=== PATIENT | male | born 1985 | race Two or more races ===

== ENCOUNTER 2016-07-17 08:01 | Emergency (ER) | payer SELFPAY ==
[~2016-07-17] VITALS: Ht 170.2 cm; Wt 83.9 kg
[~2016-07-17 08:01] MED LIST: HYDR-971 PO
[2016-07-17 08:41] VITALS: BP 164/108
[2016-07-17] MEDS ORDERED: NAPROXEN 500 MG TABLET PO STA (08:42)
--- NOTE | 2016-07-17 08:44 | RAD ---
Indication fall, pain. AP oblique and lateral views of the right ankle were obtained. No bony abnormality is seen
[2016-07-17] MEDS ORDERED: HYDROCODONE/APAP 5/325MG TABLET. PO ONE (08:45)
[2016-07-17] MEDS ORDERED: TRAM-29 PO (08:50)
--- NOTE | 2016-07-17 08:50 | PHYS DOC ---
Past Medical History Past Medical History: No Pertinent History Past Surgical History: Other Additional Past Surgical Histo: ACL repair Alcohol Use: Rarely Drug Use: None Adult General Chief Complaint Chief Complaint: ANKLE PROBLEM HPI HPI Patient is a 31 year old male with no significant medical history who presents today with moderate right lateral ankle pain that began at 6:30 this morning. Patient states he was walking down some steps in darkness when he missed one step and rolled his ankle. Patient states he heard a snap sound from the ankle. patient denies any loss of consciousness. Review of Systems Review of Systems Constitutional: Denies fever or chills [] Eyes: Denies change in visual acuity, redness, or eye pain [] HENT: Denies nasal congestion or sore throat [] : Denies dysuria or hematuria [] Musculoskeletal: Right ankle pain Integument: Denies rash or skin lesions [] Neurologic: Denies headache, focal weakness or sensory changes [] Endocrine: Denies polyuria or polydipsia [] Allergies Allergies Allergies Coded Allergies Type Severity Reaction Last Updated Verified No Known Drug Allergies 02/23/14 No Physical Exam Physical Exam Constitutional: Well developed, well nourished, no acute distress, non-toxic appearance. [] HENT: Normocephalic, atraumatic, bilateral external ears normal, oropharynx moist, no oral exudates, nose normal. [] Skin: Warm, dry, no erythema, no rash. [] Back: No tenderness, no CVA tenderness. [] Extremities: Right lateral ankle with moderate soft tissue swelling. Tenderness on palpation of the right lateral ankle. Limited range of motion to the ankle due to pain. Patient able to flex and extend the right foot. +2 right pedal pulse. Cap refill less than 2 seconds the right lower extremity. Sensation intact to the right lower extremity. Neurologic: Alert and oriented X 3, normal motor function, normal sensory function, no focal deficits noted. [] Psychologic: Affect normal, judgement normal, mood normal. [] EKG EKG [] Radiology/Procedures Radiology/Procedures []PROCEDURE: ANKLE RIGHT 3V Indication fall, pain. AP oblique and lateral views of the right ankle were obtained. No bony abnormality is seen DICTATED and SIGNED BY: BEN NAIR MD DATE: 07/17/16 0994 CC: GURPREET REVELES APRN; NO PCP; NON,STAFF ~ Course & Med Decision Making Course & Med Decision Making Pertinent Labs and Imaging studies reviewed. (See chart for details) Patient is in the ED with complaints of right ankle pain after rolling it today. Right ankle x-rays interpreted by radiologist are negative for any acute findings. Patient has right ankle sprain. Aircast applied to the right ankle by the ED RN, neurovascular exam done by me is normal, cap refill less than 2 seconds. Ice elevation encouraged. OTC pain relievers recommended. Follow-up with orthopedic doctor in one week if pain continues. Dragon Disclaimer Dragon Disclaimer This electronic medical record was generated, in whole or in part, using a voice recognition dictation system. Departure Departure Impression: Primary Impression: Right ankle sprain Disposition: HOME, SELF-CARE Condition: STABLE Referrals: NO PCP (PCP) DANILO STEELE MD Follow-up in one week Patient Instructions: Ankle Sprain Additional Instructions: Your x-ray of the right ankle is normal. You probably have right ankle sprain. Wear the air cast as ordered. Ice and elevate the extremity. Follow-up with your orthopedic doctor, or the provided orthopedic doctor in one week if pain continues. Scripts Tramadol Hcl (Ultram)50 Mg Tablet1 Tab PO Q6HRS #30 TAB Prov:GURPREET REVELES APRN 07/17/16 Problem Qualifiers Primary Impression: Right ankle sprain Encounter type: initial encounter Involved ligament of ankle: unspecified ligament Qualified Code: S93.401A - Sprain of unspecified ligament of right ankle, initial encounter GURPREET REVELES APRN July 17, 2016 08:50
== END 2016-07-17 09:08 | disposition home or self-care (01) ==
LOC: ER 08:01
DX: S93.401A Sprain of unspecified ligament of right ankle, initial encounter (principal); X58.XXXA Exposure to other specified factors, initial encounter; Y93.89 Activity, other specified; Y92.89 Other specified places as the place of occurrence of the external cause; Y99.8 Other external cause status
CPT/HCPCS: 73610; 99284

== ENCOUNTER 2017-08-12 12:48 | Emergency (ER) | payer SELFPAY ==
[2017-08-12] MEDS ORDERED: HYDROcodone/APAP 5/325MG 1 TAB TABLET PO (13:45)
== END 2017-08-12 13:31 | disposition home or self-care (01) ==
LOC: ER 12:48
DX: S90.31XA Contusion of right foot, initial encounter (principal); X58.XXXA Exposure to other specified factors, initial encounter; Y93.89 Activity, other specified; Y99.8 Other external cause status; Y92.89 Other specified places as the place of occurrence of the external cause
CPT/HCPCS: 73630; 99284

== ENCOUNTER 2018-08-17 13:56 | Emergency (ER) | payer SELFPAY ==
[~2018-08-17] VITALS: Ht 175.3 cm; Wt 83.9 kg
[~2018-08-17 13:56] MED LIST changes: +HYDR-3164 PO; -HYDR-971 PO; +TRAM-48 PO
[2018-08-17 14:03] VITALS: BP 147/91
[2018-08-17] MEDS ORDERED: HYDROcodone/APAP 5/325MG 1 TAB TABLET PO ONE (14:15)
--- NOTE | 2018-08-17 14:19 | PHYS DOC ---
Past Medical History Past Medical History: No Pertinent History Past Surgical History: Other Additional Past Surgical Histo: ACL repair,R)ankle fx and repair at age 13. Alcohol Use: Rarely Drug Use: None Adult General Chief Complaint Chief Complaint: HAND PROBLEM HPI HPI Patient is a 33 year old right-handed male who presents with complaining of right hand injury. Patient states he was moving a washer and dryer with his father and the washer was dropped on his right hand about an over prior to arrival to ER. Patient rated his pain 9/10 and complaining of erythema and painful range of motion of his right hand. Patient denies focal neurodeficit and other injuries. Review of Systems Review of Systems Constitutional: Denies fever or chills [] Eyes: Denies change in visual acuity, redness, or eye pain [] HENT: Denies nasal congestion or sore throat [] Respiratory: Denies cough or shortness of breath [] Cardiovascular: No additional information not addressed in HPI [] GI: Denies abdominal pain, nausea, vomiting, bloody stools or diarrhea [] : Denies dysuria or hematuria [] Musculoskeletal: Denies back pain, reports joint pain [] Integument: Denies rash or skin lesions [] Neurologic: Denies headache, focal weakness or sensory changes [] Endocrine: Denies polyuria or polydipsia [] All other systems were reviewed and found to be within normal limits, except as documented in this note. Current Medications Current Medications Current Medications Medications (Trade) Dose Ordered Sig/Chu Start Time Stop Time Status Last Admin Dose Admin Acetaminophen/ Hydrocodone Bitart (Lortab 5/325) 1 tab 1X ONCE 08/17/18 14:15 08/17/18 14:16 DC 08/17/18 14:32 1 TAB Allergies Allergies Allergies Coded Allergies Type Severity Reaction Last Updated Verified No Known Drug Allergies 02/23/14 No Physical Exam Physical Exam Constitutional: Well developed, well nourished, mild distress, non-toxic appearance. [] HENT: Normocephalic, atraumatic Eyes: PERRLA, EOMI, conjunctiva normal, no discharge. [] Neck: Normal range of motion, no tenderness, supple, no stridor. [] Cardiovascular:Heart rate regular rhythm, no murmur [] Lungs & Thorax: Bilateral breath sounds clear to auscultation [] Extremities: Right hand with moderate edema and contusion of dorsal of the second and third and fourth metacarpal area with tenderness, painful range of motion. Neurologic: Alert and oriented X 3, normal motor function, normal sensory function, no focal deficits noted. [] Psychologic: Affect normal, judgement normal, mood normal. [] Current Patient Data Vital Signs Vital Signs Date Time Temp Pulse Resp B/P (MAP) Pulse Ox O2 Delivery O2 Flow Rate FiO2 08/17/18 14:03 97.7 107 18 147/91 (109) 97 Room Air 97.7 EKG EKG [] Radiology/Procedures Radiology/Procedures [facility] [address] [place], [place] [id number] IMAGING REPORT Signed PATIENT: TODD LY ACCOUNT: [id number] : 1985 LOCATION: ER AGE: 33 SEX: M EXAM STATUS: REG ER ORD. PHYSICIAN: CHARY BARRETT MD REASON: injury, SMASHED HAND, DORSAL SIDE SWOLLEN/RED OVER 3RD, 4TH,5TH META CARPAL PROCEDURE: HAND RIGHT 3V Examination: 3 views of the right hand HISTORY: History of injury smashed hand COMPARISON: 02/23/2014 FINDINGS: The alignment of the metacarpophalangeal, interphalangeal joint grossly appears unremarkable. There is not a fracture or dislocation identified. Soft tissue swelling identified in the dorsum of the hand. IMPRESSION: 1. No acute osseous findings. 2. Soft tissue swelling identified in the dorsum of the hand, probably secondary to injury. Electronically signed by: Myron Tamez MD (08/17/2018 2:39 PM) [facility] DICTATED and SIGNED BY: MYRON TAMEZ MD DATE: 08/17/18 4473 Course & Med Decision Making Course & Med Decision Making Pertinent Imaging studies reviewed. (See chart for details) Evaluation of patient in ER shows 33-year-old male patient with injury to right hand. Patient had repeat contusion of right hand. X-ray did not show fracture. Plan discharge patient home to diagnose of contusion. Dragon Disclaimer Dragon Disclaimer This electronic medical record was generated, in whole or in part, using a voice recognition dictation system. Departure Departure Impression: Primary Impression: Contusion of right hand Disposition: HOME, SELF-CARE (at 1450) Condition: IMPROVED Referrals: NO PCP (PCP) Patient Instructions: Hand Contusion Additional Instructions: Apply ice on the affected area Follow-up with your primary care physician in 3-5 days Return to ER if not getting better Scripts Hydrocodone/Apap 5-325 (NORCO 5-325 TABLET) 1 Each Tablet 1 TAB PO PRN Q6HRS PRN for PAIN, #10 TAB 0 Refills Prov: CHARY BARRETT MD 08/17/18 Ibuprofen (IBUPROFEN) 800 Mg Tablet 800 MG PO PRN Q8HRS PRN for INFLAMMATION, #20 TAB Prov: CHARY BARRETT MD 08/17/18 Problem Qualifiers Primary Impression: Contusion of right hand Encounter type: initial encounter Qualified Codes: S60.221A - Contusion of right hand, initial encounter CHARY BARRETT MD Aug 17, 2018 14:19
--- NOTE | 2018-08-17 14:41 | RAD ---
Examination: 3 views of the right hand HISTORY: History of injury smashed hand COMPARISON: 02/23/2014 FINDINGS: The alignment of the metacarpophalangeal, interphalangeal joint grossly appears unremarkable. There is not a fracture or dislocation identified. Soft tissue swelling identified in the dorsum of the hand. IMPRESSION: 1. No acute osseous findings. 2. Soft tissue swelling identified in the dorsum of the hand, probably secondary to injury. Electronically signed by: Myron Tamez MD (08/17/2018 2:39 PM) [facility]
[2018-08-17] MEDS ORDERED: HYDR-3164 PO (14:51)
[2018-08-17] MEDS ORDERED: IBUP-1060 PO (14:51)
== END 2018-08-17 15:01 | disposition home or self-care (01) ==
LOC: ER 13:56
DX: S60.221A Contusion of right hand, initial encounter (principal); W20.8XXA Other cause of strike by thrown, projected or falling object, initial encounter; Y93.89 Activity, other specified; Y92.89 Other specified places as the place of occurrence of the external cause; Y99.8 Other external cause status
CPT/HCPCS: 73130; 99284

== ENCOUNTER 2019-03-07 09:49 | Emergency (ER) | payer SELFPAY ==
[~2019-03-07] VITALS: Ht 175.3 cm; Wt 83.9 kg
[~2019-03-07 09:49] MED LIST changes: +IBUP-1060 PO
[2019-03-07] MEDS ORDERED: HYDROcodone/APAP 5/325MG 1 TAB TABLET PO ONE (10:15)
[2019-03-07] MEDS ORDERED: HYDR-3164 PO (11:03)
[2019-03-07] MEDS ORDERED: PENI500T PO (11:03)
[2019-03-07] MEDS ORDERED: IBUP-1060 PO (11:03)
--- NOTE | 2019-03-07 11:03 | PHYS DOC ---
Past Medical History Past Medical History: No Pertinent History Past Surgical History: Other Additional Past Surgical Histo: ACL repair,R)ankle fx and repair at age 13. Alcohol Use: Rarely Drug Use: None Adult General Chief Complaint Chief Complaint: DENTAL PROBLEM HPI HPI Patient is a 33 year old male patient without medical history who presents with complaint of dental pain. Patient states he was eating a piece of candy last night and part of his left upper front tooth was broke and since then he has constant pain that getting better with [id number] pain medication. Patient states he called his dental office and has appointment for 5 days from now. Patient denies fever and chills, nausea and vomiting, shortness of breath and chest pain. Review of Systems Review of Systems Constitutional: Denies fever or chills [] Eyes: Denies change in visual acuity, redness, or eye pain [] HENT: Denies nasal congestion or sore throat, reports dental pain Respiratory: Denies cough or shortness of breath [] Cardiovascular: No additional information not addressed in HPI [] GI: Denies abdominal pain, nausea, vomiting, bloody stools or diarrhea [] : Denies dysuria or hematuria [] Musculoskeletal: Denies back pain or joint pain [] Integument: Denies rash or skin lesions [] Neurologic: Denies headache, focal weakness or sensory changes [] Endocrine: Denies polyuria or polydipsia [] All other systems were reviewed and found to be within normal limits, except as documented in this note. Current Medications Current Medications Current Medications Medications (Trade) Dose Ordered Sig/Chu Start Time Stop Time Status Last Admin Dose Admin Acetaminophen/ Hydrocodone Bitart (Lortab 5/325) 1 tab 1X ONCE 03/07/19 10:15 03/07/19 10:17 DC 03/07/19 10:21 1 TAB Allergies Allergies Allergies Coded Allergies Type Severity Reaction Last Updated Verified No Known Drug Allergies 02/23/14 No Physical Exam Physical Exam Constitutional: Well developed, well nourished, mild distress, non-toxic appearance. [] HENT: Normocephalic, atraumatic, bilateral external ears normal, oropharynx moist, no oral exudates, nose normal, nontender 10 partial fracture and tenderness without sign of abscess. [] Eyes: PERRLA, EOMI, conjunctiva normal, no discharge. [] Neck: Normal range of motion, no tenderness, supple, no stridor. [] Cardiovascular:Heart rate regular rhythm, no murmur [] Lungs & Thorax: Bilateral breath sounds clear to auscultation [] Neurologic: Alert and oriented X 3, normal motor function, normal sensory function, no focal deficits noted. [] Psychologic: Affect normal, judgement normal, mood normal. [] Current Patient Data Vital Signs Vital Signs Date Time Temp Pulse Resp B/P (MAP) Pulse Ox O2 Delivery O2 Flow Rate FiO2 03/07/19 11:09 85 17 164/93 (116) 97 Room Air 03/07/19 10:02 98.8 98.8 EKG EKG [] Radiology/Procedures Radiology/Procedures [] Course & Med Decision Making Course & Med Decision Making Evaluation of patient in ER showed 33-year-old male patient with fractured tooth. Patient treated with hydrocodone ER and felt better. Patient had elevation of blood pressure at 166 and was advised to record his blood pressure primary care physician Rohit Disclaimer Rohit Disclaimer This electronic medical record was generated, in whole or in part, using a voice recognition dictation system. Departure Departure Impression: Primary Impression: Fractured tooth due to trauma without complication Additional Impression: Dentalgia Disposition: HOME, SELF-CARE (at 1100) Condition: IMPROVED Referrals: NO PCP (PCP) Patient Instructions: Tooth Fracture, Toothache-Brief Additional Instructions: Drink plenty of liquids Follow-up with your dentist appointment on 03/11/2019 Return to ER if not getting better Thank you for visiting [facility]. We appreciate you trusting us with your care. If any additional problems come up don't hesitate to return to visit us. Please follow up with your primary care provider so they can plan additional care if needed and know about the problem that you had. If symptoms worsen come back to the Emergency Department. Any concerning symptoms that start such as chest pain, shortness of air, weakness or numbness on one side of the body, running high fevers or any other concerning symptoms return to the ER. Scripts Penicillin V Potassium (PENICILLIN V POTASSIUM) 500 Mg Tablet 2 TAB PO Q12HR, #40 TAB Prov: CHARY BARRETT MD 03/07/19 Hydrocodone/Apap 5-325 (NORCO 5-325 TABLET) 1 Each Tablet 1 TAB PO PRN Q6HRS PRN for PAIN, #10 TAB 0 Refills Prov: CHARY BARRETT MD 03/07/19 Ibuprofen (IBUPROFEN) 800 Mg Tablet 800 MG PO PRN Q8HRS PRN for INFLAMMATION, #20 TAB Prov: CHARY BARRETT MD 03/07/19 Problem Qualifiers Primary Impression: Fractured tooth due to trauma without complication Encounter type: initial encounter Fracture type: closed Qualified Codes: S02.5XXA - Fracture of tooth (traumatic), initial encounter for closed fracture CHARY BARRETT MD Mar 07, 2019 11:03
[2019-03-07 11:09] VITALS: BP 164/93
== END 2019-03-07 11:09 | disposition home or self-care (01) ==
LOC: ER 09:49
DX: S02.5XXA Fracture of tooth (traumatic), initial encounter for closed fracture (principal); K08.89 Other specified disorders of teeth and supporting structures; Z98.890 Other specified postprocedural states; X58.XXXA Exposure to other specified factors, initial encounter; Y93.89 Activity, other specified; Y92.89 Other specified places as the place of occurrence of the external cause; Y99.8 Other external cause status
CPT/HCPCS: 99283

== ENCOUNTER 2019-08-18 18:49 | Emergency (ER) | payer SELFPAY ==
[~2019-08-18] VITALS: Ht 175.3 cm; Wt 84.0 kg
[~2019-08-18 18:49] MED LIST changes: +PENI500T PO
[2019-08-18 19:00] VITALS: BP 153/99
--- NOTE | 2019-08-18 19:10 | PHYS DOC ---
Past Medical History Past Medical History: No Pertinent History Past Surgical History: Other Additional Past Surgical Histo: ACL repair,R)ankle fx and repair at age 13. Smoking Status: Current Every Day Smoker Alcohol Use: Rarely Drug Use: None General Adult EDM: Chief Complaint: HAND PROBLEM HPI: HPI: Patient is a 34 year old male who presents with patient states that he was reaching into the vehicle to grab the keys of hydro technician and his girlfriend accidentally slammed the car door on his right hand. He has swelling and pain to the dorsal right hand just distal to the second third fourth and fifth knuckles. He denies any numbness or tingling. There is no laceration. 2+ swelling. Patient unable to make a fist or have full range of motion of his fingers due to pain and swelling. Patient rates his pain a 10 out of 10. Review of Systems: Review of Systems: Musculoskeletal: Denies back pain or joint pain. Right hand pain [] Heart Score: Risk Factors: Risk Factors: DM, Current or recent (<one month) smoker, HTN, HLP, family history of CAD, obesity. Risk Scores: Score 0 - 3: 2.5% MACE over next 6 weeks - Discharge Home Score 4 - 6: 20.3% MACE over next 6 weeks - Admit for Clinical Observation Score 7 - 10: 72.7% MACE over next 6 weeks - Early Invasive Strategies Allergies: Allergies: Allergies Coded Allergies Type Severity Reaction Last Updated Verified No Known Drug Allergies 02/23/14 No Physical Exam: PE: Constitutional: Well developed, well nourished, no acute distress, non-toxic appearance. [] HENT: Normocephalic, atraumatic, bilateral external ears normal, oropharynx moist, no oral exudates, nose normal. [] Eyes: PERRLA, EOMI, conjunctiva normal, no discharge. [] Neck: Normal range of motion, no tenderness, supple, no stridor. [] Cardiovascular:Heart rate regular rhythm, no murmur [] Lungs & Thorax: Bilateral breath sounds clear to auscultation [] Abdomen: Bowel sounds normal, soft, no tenderness, no masses, no pulsatile mas ses. [] Skin: Warm, dry, no erythema, no rash. [] Back: No tenderness, no CVA tenderness. [] Extremities: Right dorsal hand tenderness, no cyanosis, no clubbing, right fingers and knuckles ROM not intact, 2+ edema. [] Neurologic: Alert and oriented X 3, normal motor function, normal sensory func tion, no focal deficits noted. [] Psychologic: Affect normal, judgement normal, mood normal. [] Current Patient Data: Vital Signs: Vital Signs Date Time Temp Pulse Resp B/P (MAP) Pulse Ox O2 Delivery O2 Flow Rate FiO2 08/18/19 19:00 98.2 104 18 153/99 (117) 97 Room Air 98.2 EKG: EKG: [] Radiology/Procedures: Radiology/Procedures: [] Impression: [facility] [address] [place], [place] [id number] IMAGING REPORT Signed PATIENT: TODD LY ACCOUNT: [id number] : 1985 LOCATION: ER AGE: 34 SEX: M EXAM STATUS: REG ER ORD. PHYSICIAN: MICHI PATEL APRN REASON: slammed in car door PROCEDURE: HAND RIGHT 3V Exam: Right hand 3 views INDICATION: Slammed in car door TECHNIQUE: Frontal, lateral and oblique views of the right hand Comparisons: Radiographs 08/17/2018 FINDINGS: Soft tissue swelling overlying the metacarpals. Bone mineralization is normal. No acute or healed fractures. Joint spaces are well-maintained. IMPRESSION: Soft tissue swelling overlying the metacarpals without underlying osseous abnormality identified. Electronically signed by: Keith Stevens MD (08/18/2019 8:10 PM) [id number] DICTATED and SIGNED BY: KEITH STEVENS MD DATE: 08/18/192009 Course & Med Decision Making: Course & Med Decision Making Pertinent Labs and Imaging studies reviewed. (See chart for details) Cap refill less than 2 seconds. Radial pulse strong present. Skin pink warm and dry. Tenderness and swelling to the dorsal hand as described in the HPI. No deformity is seen. No deformity to any joints and no laxity to any joints. Ice is applied. Patient is given [place]. Dr Soto read xray as no acute findings. Patient is put in sondra wrap. Patient can follow up with orthopedics. [] Dragon Disclaimer: Dragon Disclaimer: This electronic medical record was generated, in whole or in part, using a voice recognition dictation system. Departure Departure Impression: Primary Impression: Hand injury Qualified Codes: S69.91XA - Unspecified injury of right wrist, hand and finger(s), initial encounter Additional Impression: Contusion Qualified Codes: S60.221A - Contusion of right hand, initial encounter Disposition: HOME, SELF-CARE Condition: STABLE Referrals: NO PCP (PCP) Patient Instructions: Crush Injury, Fingers or Toes, [id number] Additional Instructions: Follow up with [facility] orthopedic if needed. Use ice and elevation to help with swelling and pain. Take medication as prescribed and with food and with do not operate any machinery while on this medication. Scripts Hydrocodone/Apap 5-325 (NORCO 5-325 TABLET) 1 Each Tablet 1 TAB PO PRN Q6HRS PRN for PAIN, #10 TAB 0 Refills Prov: MICHI PATEL APRN 08/18/19 MICHI PATEL APRN Aug 18, 2019 19:10
[2019-08-18] MEDS ORDERED: HYDROcodone/APAP 5/325MG 1 TAB TABLET PO ONE (19:15)
[2019-08-18] MEDS ORDERED: HYDR-3164 PO (20:13)
--- NOTE | 2019-08-18 20:13 | RAD ---
Exam: Right hand 3 views INDICATION: Slammed in car door TECHNIQUE: Frontal, lateral and oblique views of the right hand Comparisons: Radiographs 08/17/2018 FINDINGS: Soft tissue swelling overlying the metacarpals. Bone mineralization is normal. No acute or healed fractures. Joint spaces are well-maintained. IMPRESSION: Soft tissue swelling overlying the metacarpals without underlying osseous abnormality identified. Electronically signed by: Keith Becker MD (08/18/2019 8:10 PM) [id number]
== END 2019-08-18 20:26 | disposition home or self-care (01) ==
LOC: ER 18:49
DX: S60.221A Contusion of right hand, initial encounter (principal); R60.0 Localized edema; F17.200 Nicotine dependence, unspecified, uncomplicated; Z98.890 Other specified postprocedural states; W23.0XXA Caught, crushed, jammed, or pinched between moving objects, initial encounter; Y93.89 Activity, other specified; Y92.89 Other specified places as the place of occurrence of the external cause; Y99.8 Other external cause status
CPT/HCPCS: 73130; 99283

== ENCOUNTER 2019-10-13 10:40 | Emergency (ER) | payer SELFPAY ==
[~2019-10-13] VITALS: Ht 175.3 cm; Wt 86.0 kg
--- NOTE | 2019-10-13 12:19 | RAD ---
AP, lateral spot and lateral views of the lumbar spine were performed. History: Reason: FELL OFF A LADDER, LOWER BACK PAIN / Spl. Instructions: / History: Comparison: None. There is no fracture, listhesis, intervertebral disc space narrowing, or significant degenerative changes of the lumbar spine. Impression: 1. Unremarkable plain films of the lumbar spine. Electronically signed by: Nitesh Abrams MD (10/13/2019 12:16 PM) [id number]
--- NOTE | 2019-10-13 12:19 | RAD ---
Single AP plain film of the pelvis was performed. History: Reason: FELL OFF A LADDER, LOWER BACK PAIN / Spl. Instructions: / History: Comparison: None. No fracture or acute bony injury is seen. The femoral heads are located in the acetabula. No significant degenerative changes are identified. Bowel gas is present in the rectum. Impression: Unremarkable plain film exam of the pelvis. Electronically signed by: Nitesh Abrams MD (10/13/2019 12:16 PM) [id number]
--- NOTE | 2019-10-13 13:29 | PHYS DOC ---
Past Medical History Past Medical History: No Pertinent History Past Surgical History: Other Additional Past Surgical Histo: ACL repair,R)ankle fx and repair at age 13. Smoking Status: Current Every Day Smoker Alcohol Use: Rarely Drug Use: None General Adult EDM: Chief Complaint: LOWER BACK PAIN OR INJURY HPI: HPI: Patient is a 34 year old male who presented to ER today for evaluation of low back pain after he fell off a ladder yesterday. Patient said he was on a ladder about 5 feet above the ground, his dog knocked the ladder underneath him and he fell down on his lower back. Patient denies any head or neck injury, denies any extremity pain. Patient has been able to walk without any pelvic pain. Patient complains of low back pain, no bowel or bladder incontinence. Patient denies any numbness or weakness in the lower extremity. Review of Systems: Review of Systems: Constitutional: Denies fever or chills. [] Eyes: Denies change in visual acuity. [] HENT: Denies nasal congestion or sore throat. [] Respiratory: Denies cough or shortness of breath. [] Cardiovascular: Denies chest pain or edema. [] GI: Denies abdominal pain, nausea, vomiting, bloody stools or diarrhea. [] : Denies dysuria. [] Musculoskeletal: Positive for low back pain Integument: Denies rash. [] Neurologic: Denies headache, focal weakness or sensory changes. [] Endocrine: Denies polyuria or polydipsia. [] Lymphatic: Denies swollen glands. [] Psychiatric: Denies depression or anxiety. [] Heart Score: Risk Factors: Risk Factors: DM, Current or recent (<one month) smoker, HTN, HLP, family histo ry of CAD, obesity. Risk Scores: Score 0 - 3: 2.5% MACE over next 6 weeks - Discharge Home Score 4 - 6: 20.3% MACE over next 6 weeks - Admit for Clinical Observation Score 7 - 10: 72.7% MACE over next 6 weeks - Early Invasive Strategies Allergies: Allergies: Allergies Coded Allergies Type Severity Reaction Last Updated Verified No Known Drug Allergies 02/23/14 No Physical Exam: PE: Constitutional: Well developed, well nourished, no acute distress, non-toxic appearance. [] HENT: Normocephalic, atraumatic, bilateral external ears normal, oropharynx moist, no oral exudates, nose normal. [] Eyes: PERRLA, EOMI, conjunctiva normal, no discharge. [] Neck: Normal range of motion, no tenderness, supple, no stridor. [] Cardiovascular:Heart rate regular rhythm, no murmur [] Lungs & Thorax: Bilateral breath sounds clear to auscultation [] Abdomen: Bowel sounds normal, soft, no tenderness, no masses, no pulsatile masses. [] Skin: Warm, dry, no erythema, no rash. [] Back: There is no contusion in the buttock or low back area, there is tenderness to palpation at L4 and L5 area. Extremities: No tenderness, no cyanosis, no clubbing, ROM intact, no edema. [] Neurologic: Alert and oriented X 3, normal motor function, normal sensory function, no focal deficits noted. [] Psychologic: Affect normal, judgement normal, mood normal. [] Current Patient Data: Vital Signs: Vital Signs Date Time Temp Pulse Resp B/P (MAP) Pulse Ox O2 Delivery O2 Flow Rate FiO2 10/13/19 10:47 98.1 103 16 160/97 (118) 98 Room Air 98.1 EKG: EKG: [] Radiology/Procedures: Radiology/Procedures: [][facility] [address] [place] [address] IMAGING REPORT Signed PATIENT: TODD LY ACCOUNT: [id number] : 1985 LOCATION: ER AGE: 34 SEX: M EXAM STATUS: REG ER ORD. PHYSICIAN: ALEXIS MENDOZA DO REASON: FELL OFF A LADDER, LOWER BACK PAIN PROCEDURE: LUMBAR SPINE 2-3V AP, lateral spot and lateral views of the lumbar spine were performed. History: Reason: FELL OFF A LADDER, LOWER BACK PAIN / Spl. Instructions: / History: Comparison: None. There is no fracture, listhesis, intervertebral disc space narrowing, or significant degenerative changes of the lumbar spine. Impression: 1. Unremarkable plain films of the lumbar spine. Electronically signed by: Nitesh Abrams MD (10/13/2019 12:16 PM) [id number] DICTATED and SIGNED BY: NITESH ABRAMS MD DATE: 10/13/19 1216 Course & Med Decision Making: Course & Med Decision Making Pertinent Labs and Imaging studies reviewed. (See chart for details) Patient is a 34-year-old male who was evaluated in ER due to low back pain after he fell. X-ray did not show any acute problem. Patient will be discharged home. Dragon Disclaimer: Dragon Disclaimer: This electronic medical record was generated, in whole or in part, using a voice recognition dictation system. Departure Departure Impression: Primary Impression: Lower back pain Disposition: HOME, SELF-CARE Condition: STABLE Referrals: NO PCP (PCP) please follow up with your doctor as needed Patient Instructions: Back Pain, Adult Scripts Tramadol Hcl (TRAMADOL HCL) 50 Mg Tablet 50 MG PO Q6HRS PRN for PAIN, #20 TAB Prov: ALEXIS MENDOZA DO 10/13/19 Justicifation of Admission Dx: Justifications for Admission: Justification of Admission Dx: N/A ALEXIS MENDOZA DO Oct 13, 2019 13:29
[2019-10-13] MEDS ORDERED: IBUPROFEN 400 MG TABLET. PO ONE (13:30)
[2019-10-13] MEDS ORDERED: ACETAMINOPHEN 500 MG TABLET PO ONE (13:30)
[2019-10-13] MEDS ORDERED: TRAM50TA PO (13:32)
[2019-10-13 13:50] VITALS: BP 154/78
== END 2019-10-13 13:55 | disposition home or self-care (01) ==
LOC: ER 10:40
DX: M54.5 Low back pain (principal); F17.200 Nicotine dependence, unspecified, uncomplicated; Z98.890 Other specified postprocedural states
CPT/HCPCS: 72100; 72170; 99284

== ENCOUNTER 2020-12-06 18:29 | Emergency (ER) | payer SELFPAY ==
[~2020-12-06 18:29] MED LIST changes: +TRAM50TA PO
== END 2020-12-06 18:41 | disposition left against medical advice (07) ==
LOC: ER 18:29
DX: S89.91XA Unspecified injury of right lower leg, initial encounter (principal); Z53.21 Procedure and treatment not carried out due to patient leaving prior to being seen by health care provider; X58.XXXA Exposure to other specified factors, initial encounter; Y93.89 Activity, other specified; Y92.89 Other specified places as the place of occurrence of the external cause; Y99.8 Other external cause status

== ENCOUNTER 2021-01-04 18:38 | Emergency (ER) | payer SELFPAY ==
[~2021-01-04] VITALS: Ht 175.3 cm; Wt 84.1 kg
[2021-01-04] MEDS ORDERED: fentaNYL PF VIAL 100 MCG/2 ML VIAL IVP ONE (20:45)
--- NOTE | 2021-01-04 21:00 | RAD ---
EXAM: 3 Views Right Shoulder DATE: 01/04/2021 8:55 PM INDICATION: Reason: deformity / Spl. Instructions: / History: COMPARISON: No Prior FINDINGS: There is no evidence for acute fracture or dislocation. AC joint is congruent. Humeral head is not hi gh riding. IMPRESSION: 1. No acute fracture or dislocation. Electronically signed by: Jas Parekh MD (01/04/2021 8:58 PM) NAKITA
--- NOTE | 2021-01-04 21:10 | PHYS DOC ---
Past Medical History Past Medical History: No Pertinent History Past Surgical History: Other Additional Past Surgical Histo: ACL repair,R)ankle fx and repair at age 13. Smoking Status: Current Every Day Smoker Alcohol Use: Rarely Drug Use: None General Adult EDM: Chief Complaint: SHOULDER INJURY HPI: HPI: Patient is a 35 year old male who presents with 4-day history of right shoulder pain. Patient rates his pain 8/10 at rest worse with movement and pressure of any kind. Patient states that on Sunday, his dog was jumping up on him when he came home, but then the baby started crying and the dog "bolted." The patient was knocked down and hit his shoulder on the coffee table. Patient states "it popped out, then kind of popped back in." He has been alternating ibuprofen and Tylenol, as well as using ice. His pain has worsened since onset. He reports associated cramping in his neck, because he has to sleep in somewhat uncomfortable positions to not agitate his shoulder. Patient denies fever, chills, head trauma, loss of consciousness, any other pain or injuries. Review of Systems: Review of Systems: Constitutional: See HPI. Respiratory: Denies cough or shortness of breath. Cardiovascular: Denies chest pain or edema. Musculoskeletal: See HPI Integument: Denies rash or laceration. Neurologic: Denies headache, focal weakness or sensory changes. Heart Score: C/O Chest Pain: No Current Medications: Current Medications Medications (Trade) Dose Ordered Sig/[facility] Start Time Stop Time Status Last Admin Dose Admin Fentanyl Citrate (Fentanyl 2ml Vial) 50 mcg 1X ONCE 01/04/21 20:45 01/04/21 20:46 DC Allergies: Allergies: Allergies Coded Allergies Type Severity Reaction Last Updated Verified No Known Drug Allergies 02/23/14 No Physical Exam: PE: Constitutional: Well developed, well nourished, no acute distress, non-toxic appearance. Neck: Normal range of motion, no step-offs, no bony tenderness, paraspinal muscle spasm appreciated bilaterally. Cardiovascular: Heart rate regular rhythm, no murmur. Lungs & Thorax: Bilateral breath sounds clear to auscultation. No chest wall tenderness or crepitus. Skin: Old ecchymosis noted on the right shoulder extending down to right chest. Superficial abrasion noted near the right clavicle. Skin otherwise warm, dry, no erythema, no rash. Back: No step-offs, no bony tenderness, no paraspinal tenderness. Extremities: Right shoulder with anterior swelling, uneven shoulder height with right lower than left. Tender to palpation diffusely, active range of motion limited secondary to pain in all directions, passive range of motion intact with pain. Extremities otherwise no tenderness, no cyanosis, no clubbing, ROM intact, no edema. Neurovascular intact. Neurologic: Alert and oriented x3, normal motor function, normal sensory function, no focal deficits noted. Current Patient Data: Vital Signs: Vital Signs Date Time Temp Pulse Resp B/P (MAP) Pulse Ox O2 Delivery O2 Flow Rate FiO2 01/04/21 20:00 98.6 105 18 153/89 (110) 98 Room Air 98.6 Radiology/Procedures: Radiology/Procedures: PROCEDURE: SHOULDER 2+V RIGHT EXAM: 3 Views Right Shoulder DATE: 01/04/2021 8:55 PM INDICATION: Reason: deformity / Spl. Instructions: / History: COMPARISON: No Prior FINDINGS: There is no evidence for acute fracture or dislocation. AC joint is congruent. Humeral head is not high riding. IMPRESSION: 1. No acute fracture or dislocation. Electronically signed by: Jas Parekh MD (01/04/2021 8:58 PM) [facility] Course & Med Decision Making: Course & Med Decision Making Pertinent Labs and Imaging studies reviewed. (See chart for details) Patient will be provided with fentanyl for pain management prior to x-ray imaging. X-rays do not show any acute fracture deformity. Patient will be discharged home with muscle relaxer and instruction to use [id number] ibuprofen 800 mg every 6 hours for pain. Rohit Disclaimer: Rohit Disclaimer: This electronic medical record was generated, in whole or in part, using a voice recognition dictation system. Departure Departure Impression: Primary Impression: Contusion of right shoulder, initial encounter Disposition: HOME / SELF CARE / HOMELESS Condition: STABLE Referrals: NO PCP (PCP) BALJIT VELEZ DO Patient Instructions: Shoulder Pain, [id number] Additional Instructions: Your x-rays today did not show any dislocation or fracture. You will be treated for muscle spasm secondary to the trauma you experience the other day. Prescription was sent to your pharmacy for Norflex, which you can take every 12 hours. Combine this with up to 800 mg ibuprofen every 6 hours. Please return to the emergency department if your pain symptoms do not improve. Additionally, you were given contact information for an orthopedic doctor. You may follow-up with them in the next few weeks if your shoulder does not seem to be healing. Scripts Orphenadrine Citrate (ORPHENADRINE CITRATE) 100 Mg Tablet.er 1 TAB PO Q12HR, #20 TAB 1 Refill Prov: TRE ORTIZ 01/04/21 TRE ORTIZ Jan 04, 2021 21:10
[2021-01-04 22:31] VITALS: BP 139/95
[2021-01-04] MEDS ORDERED: ORPH100T PO (22:44)
[2021-01-04] MEDS ORDERED: KETOROLAC 15 MG/ML VIAL. IM ONE (22:45)
[2021-01-04] MEDS ORDERED: ORPHENADRINE CITRATE 60 MG/2 ML VIAL. IM ONE (22:45)
== END 2021-01-04 23:00 | disposition home or self-care (01) ==
LOC: ER 18:38
DX: S40.011A Contusion of right shoulder, initial encounter (principal); F17.200 Nicotine dependence, unspecified, uncomplicated; W54.1XXA Struck by dog, initial encounter; Y93.89 Activity, other specified; Y92.098 Other place in other non-institutional residence as the place of occurrence of the external cause; Y99.8 Other external cause status
CPT/HCPCS: 73030; 96372; 96374; 99285; A4565; J1885; J2360; J3010

== ENCOUNTER 2021-04-17 11:57 | Emergency (ER) | payer SELFPAY ==
[~2021-04-17] VITALS: Ht 175.3 cm; Wt 86.0 kg
[~2021-04-17 11:57] MED LIST changes: +ORPH100T PO
[2021-04-17 13:15] VITALS: BP 168/99
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
[2021-04-17] MEDS ORDERED: HYDROcodone/APAP 5/325MG 1 TAB TABLET PO ONE (13:30)
[2021-04-17] MEDS ORDERED: BACITRACIN TOPICAL OINT PACKET. TP ONE (13:30)
[2021-04-17] MEDS ORDERED: HYDR-2761 PO (13:36)
[2021-04-17] MEDS ORDERED: BACI28.34 TP (13:36)
== END 2021-04-17 14:06 | disposition home or self-care (01) ==
LOC: ER 11:57
DX: T22.20XA Burn of second degree of shoulder and upper limb, except wrist and hand, unspecified site, initial encounter (principal); F17.200 Nicotine dependence, unspecified, uncomplicated; W40.8XXA Explosion of other specified explosive materials, initial encounter; Y93.89 Activity, other specified; Y92.89 Other specified places as the place of occurrence of the external cause; Y99.8 Other external cause status
CPT/HCPCS: 16020; 99283

== ENCOUNTER 2021-04-20 21:37 | Emergency (ER) | payer SELFPAY ==
[~2021-04-20] VITALS: Ht 175.3 cm; Wt 84.0 kg
[~2021-04-20 21:37] MED LIST changes: +BACI28.34 TP; +HYDR-2761 PO
[2021-04-20 21:47] VITALS: BP 154/98
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
[2021-04-20] MEDS ORDERED: BACITRACIN TOPICAL OINT PACKET. TP ONE (22:15)
[2021-04-20] MEDS ORDERED: BACI28.43 TP (22:19)
[2021-04-20] MEDS ORDERED: HYDR-2761 PO (22:19)
== END 2021-04-20 23:10 | disposition home or self-care (01) ==
LOC: ER 21:37
DX: T22.211A Burn of second degree of right forearm, initial encounter (principal); F17.200 Nicotine dependence, unspecified, uncomplicated; X08.8XXA Exposure to other specified smoke, fire and flames, initial encounter; Y93.89 Activity, other specified; Y92.89 Other specified places as the place of occurrence of the external cause; Y99.8 Other external cause status
CPT/HCPCS: 16020; 99283

== ENCOUNTER 2021-05-09 17:32 | Emergency (ER) | payer SELFPAY ==
[~2021-05-09] VITALS: Ht 175.3 cm; Wt 84.0 kg
[~2021-05-09 17:32] MED LIST changes: +BACI28.43 TP
--- NOTE | 2021-05-09 18:35 | PHYS DOC ---
Past Medical History Past Medical History: No Pertinent History Past Surgical History: Other Additional Past Surgical Histo: ACL repair,R)ankle fx and repair at age 13. Smoking Status: Current Every Day Smoker Alcohol Use: Rarely Drug Use: None General Adult EDM: Chief Complaint: RIB PAIN HPI: HPI: Patient is a 35 year old male patient who presents to the ED today complaining of moderate right anterior rib pain, patient states he got hit by a baseball today. Review of Systems: Review of Systems: Constitutional: Denies fever or chills. [] Eyes: Denies change in visual acuity. [] HENT: Denies nasal congestion or sore throat. [] Respiratory: Denies cough or shortness of breath. [] Cardiovascular: Reports right anterior rib pain GI: Denies abdominal pain, nausea, vomiting, bloody stools or diarrhea. [] : Denies dysuria. [] Musculoskeletal: Denies back pain or joint pain. [] Integument: Denies rash. [] Neurologic: Denies headache, focal weakness or sensory changes. [] Psychiatric: Denies depression or anxiety. [] Heart Score: C/O Chest Pain: N/A Risk Factors: Risk Factors: DM, Current or recent (<one month) smoker, HTN, HLP, family history of CAD, obesity. Risk Scores: Score 0 - 3: 2.5% MACE over next 6 weeks - Discharge Home Score 4 - 6: 20.3% MACE over next 6 weeks - Admit for Clinical Observation Score 7 - 10: 72.7% MACE over next 6 weeks - Early Invasive Strategies Allergies: Allergies: Allergies Coded Allergies Type Severity Reaction Last Updated Verified No Known Drug Allergies 02/23/14 No Physical Exam: PE: Constitutional: Well developed, well nourished, no acute distress, non-toxic appearance. [] HENT: Normocephalic, atraumatic, bilateral external ears normal, oropharynx moist, no oral exudates, nose normal. [] Eyes: PERRLA, EOMI, conjunctiva normal, no discharge. [] Neck: Normal range of motion, no tenderness, supple, no stridor. [] Cardiovascular:Heart rate regular rhythm, no murmur [] Lungs & Thorax: Right anterior lower ribs with an area of redness and tenderness to the area. Bilateral breath sounds clear to auscultation [] Abdomen: Bowel sounds normal, soft, no tenderness, no masses, no pulsatile masses. [] Skin: Warm, dry, no erythema, no rash. [] Back: No tenderness, no CVA tenderness. [] Extremities: No tenderness, no cyanosis, no clubbing, ROM intact, no edema. [] Neurologic: Alert and oriented X 3, normal motor function, normal sensory function, no focal deficits noted. [] Psychologic: Affect normal, judgement normal, mood normal. [] Current Patient Data: Vital Signs: Vital Signs Date Time Temp Pulse Resp B/P (MAP) Pulse Ox O2 Delivery O2 Flow Rate FiO2 05/09/21 17:36 98.4 76 20 140/94 (109) Room Air 98.4 EKG: EKG: [] Radiology/Procedures: Radiology/Procedures: []PROCEDURE: RIBS RIGHT AND PA CHEST Exam: Right RIBS with PA chest INDICATION: Pain, hit by baseball TECHNIQUE: Frontal view of the chest with frontal and oblique views of the right ribs Comparisons: None FINDINGS: The cardiomediastinal silhouette and pulmonary vessels are within normal limits. The lung and pleural spaces are clear. Minimally cortical step-off noted along the anterior lateral aspect of the right 10th rib. IMPRESSION: 1. Suspect minimally displaced anterolateral right 10th rib fracture. Correlate with point tenderness. 2. No acute cardiopulmonary process. Electronically signed by: Amanda Stevens MD (05/09/2021 6:42 PM) [facility] DICTATED and SIGNED BY: AMANDA STEVENS MD DATE: 05/09/21 [id number] 0 Course & Med Decision Making: Course & Med Decision Making Pertinent Labs and Imaging studies reviewed. (See chart for details) This is a 35-year-old male patient presented to the ED today complaining of right anterior rib pain after being hit by a baseball today. Right rib x-rays including PA chest noted for suspect minimally displaced anterolateral right 10th rib fracture. Discharge home with flexeril, naproxen and gabapentin. NO narcotics. Follow-up with PCP, incentive spirometry recommended Unfortunately this patient has multiple ED with pain related complaints or injuries. I even questioned him on whether this are self inflicted injuries. Dragon Disclaimer: Dragon Disclaimer: This electronic medical record was generated, in whole or in part, using a voice recognition dictation system. Departure Departure Impression: Primary Impression: Right rib fracture Qualified Codes: S22.31XA - Fracture of one rib, right side, initial encounter for closed fracture Disposition: HOME / SELF CARE / HOMELESS Condition: STABLE Referrals: NO PCP (PCP) Follow-up with your primary care doctor as soon as you can Patient Instructions: Rib Fracture, [id number] Additional Instructions: You were evaluated in the emergency room and noted to have a possible 10th rib fracture. Please use an incentive spirometer to take deep breaths 10 times every hour when awake. Follow-up with your own doctor in 1 to 2 weeks. Ice the area. Scripts Gabapentin (GABAPENTIN ) 300 Mg Capsule 300 MG PO TID for NEUROGENIC PAIN, #21 CAP Prov: GURPREET REVELES APRN 05/09/21 Cyclobenzaprine Hcl (CYCLOBENZAPRINE HCL) 10 Mg Tablet 1 TAB PO TID, #30 TAB Prov: GURPREET REVELES APRN 05/09/21 GURPREET REVELES APRN May 09, 2021 18:35
--- NOTE | 2021-05-09 18:45 | RAD ---
Exam: Right RIBS with PA chest INDICATION: Pain, hit by baseball TECHNIQUE: Frontal view of the chest with frontal and oblique views of the right ribs Comparisons: None FINDINGS: The cardiomediastinal silhouette and pulmonary vessels are within normal limits. The lung and pleural spaces are clear. Minimally cortical step-off noted along the anterior lateral aspect of the right 10th rib. IMPRESSION: 1. Suspect minimally displaced anterolateral right 10th rib fracture. Correlate with point tendernes s. 2. No acute cardiopulmonary process. Electronically signed by: Keith Becker MD (05/09/2021 6:42 PM) [facility]
[2021-05-09] MEDS ORDERED: CYCL10TA19 PO (19:16)
[2021-05-09] MEDS ORDERED: GABA300C18 PO (19:16)
[2021-05-09 20:22] VITALS: BP 141/95
== END 2021-05-09 19:10 | disposition home or self-care (01) ==
LOC: ER 17:32
DX: S22.31XA Fracture of one rib, right side, initial encounter for closed fracture (principal); F17.200 Nicotine dependence, unspecified, uncomplicated; W21.03XA Struck by baseball, initial encounter; Y93.89 Activity, other specified; Y92.89 Other specified places as the place of occurrence of the external cause; Y99.8 Other external cause status
CPT/HCPCS: 71101; 99283